=== PATIENT | female | born 1965 | race African-American/Black ===

== ENCOUNTER 2018-04-18 21:30 | Emergency (ER) | payer OTHER ==
[~2018-04-18] VITALS: Ht 170.2 cm; Wt 45.0 kg
[~2018-04-18 21:30] MED LIST: AMLO-511 PO; LORA10TA7 PO; METF-445 PO; OMEP20TA2 PO; PRAV20TA4 PO
[2018-04-18 21:49] LABS: GLUCOSE,POINT OF CARE 148 MG/DL (70-110)
[2018-04-18] MEDS ORDERED: MethylPREDNISolone SOD SUCC 125 MG/2 ML VIAL IM ONE (23:45)
[2018-04-18] MEDS ORDERED: KETOROLAC TROMETHAMINE 30 MG/ML VIAL IM ONE (23:45)
[2018-04-19] MEDS ORDERED: CARISOPRODOL 350 MG TABLET PO ONE (02:45)
[2018-04-19] MEDS ORDERED: HYDROCODONE/ACETAMINOPHEN 5-325 MG TABLET PO ONE (02:45)
[2018-04-19 04:25] LABS: APPEARANCE,URINE CLEAR (CLEAR); BILIRUBIN,URINE NEGATIVE (NEGATIVE); GLUCOSE, URINE (UA) >=1000 mg/dL (NEGATIVE); KETONES,URINE 15 mg/dL (NEGATIVE); LEUKOCYTE ESTERASE ,URINE NEGATIVE (NEGATIVE); NITRATE,URINE NEGATIVE (NEGATIVE); OCCULT BLOOD,URINE NEGATIVE (NEGATIVE); PH,URINE 6.5 (5.0-8.0); PROTEIN,URINE NEGATIVE (NEGATIVE)
[2018-04-19 04:29] LABS: AMPHET/METH SCREEN,URINE POSITIVE (NEGATIVE); BARBITURATE SCREEN, URINE NEGATIVE (NEGATIVE); BENZODIAZEPINES SCREEN,URINE NEGATIVE (NEGATIVE); CANNABINOID SCREEN,URINE POSITIVE (NEGATIVE); COCAINE SCREEN,URINE NEGATIVE (NEGATIVE); METHADONE SCREEN, URINE NEGATIVE (NEGATIVE); OPIATE SCREEN,URINE NEGATIVE (NEGATIVE); PHENCYCLIDINE SCREEN,URINE NEGATIVE (NEGATIVE)
[2018-04-19 04:32] LABS: BACTERIA,URINE None Seen /HPF (None Seen); SQUAMOUS EPITHELIAL CELL,UR Rare /LPF (None Seen); WBC,URINE 0-2 /HPF (0-5)
[2018-04-19 05:00] VITALS: BP 141/89
== END 2018-04-19 06:12 | disposition home or self-care (01) ==
LOC: EMS 21:31
DX: M54.42 Lumbago with sciatica, left side (principal); I10 Essential (primary) hypertension; E78.00 Pure hypercholesterolemia, unspecified; E11.9 Type 2 diabetes mellitus without complications; F17.210 Nicotine dependence, cigarettes, uncomplicated; F12.90 Cannabis use, unspecified, uncomplicated; Z79.4 Long term (current) use of insulin
CPT/HCPCS: 80307; 81001; 82962; 96372; 99283; J1885; J2930

== ENCOUNTER 2018-05-19 16:05 | Emergency (ER) | payer OTHER ==
[~2018-05-19] VITALS: Ht 170.2 cm; Wt 46.4 kg
[2018-05-19 16:30] LABS: GLUCOSE,POINT OF CARE 104 MG/DL (70-110)
[2018-05-19] MEDS ORDERED: ONDANSETRON HCL 4 MG/2 ML VIAL IVP ONE (19:30)
[2018-05-19] MEDS ORDERED: MORPHINE SULFATE 4 MG/ML SYRINGE IVP ONE (19:30)
[2018-05-19 19:35] LABS: EOSINOPHILS % (AUTO) 2.5 % (1.0-6.0); HEMATOCRIT 44.3 % (36-46); HEMOGLOBIN 15.6 g/dL (12.0-16.0); LYMPHOCYTES # (AUTO) 1.7 K/uL (1.0-4.8); LYMPHOCYTES % (AUTO) 28.4 % (22.0-44.0); MEAN CORPUSCULAR HEMOGLOBIN 32.9 pg (26.0-34.0); MEAN CORPUSCULAR HGB CONC 35.2 G/dL (31.0-37.0); MEAN CORPUSCULAR VOLUME 93 fL (80-100); MONOCYTES # (AUTO) 0.6 K/uL (0.1-1.0); MONOCYTES % (AUTO) 10.2 % (2.0-9.0); NEUTROPHILS # (AUTO) 3.5 K/uL (1.8-7.7); NEUTROPHILS % (AUTO) 56.9 % (40.0-70.0); PLATELET COUNT (AUTO) 323 K/uL (150-450); RED BLOOD CELL COUNT(AUTO) 4.75 MIL/uL (4.00-5.20); RED CELL DISTRIBUTION WIDTH 14.8 % (11.5-14.5)
[2018-05-19 19:44] LABS: ANION GAP 7 mmol/L (8-16); CALCIUM, TOTAL 9.5 mg/dL (8.8-10.5); CARBON DIOXIDE 31 mmol/L (22-29); CHLORIDE 100 mmol/L (98-107); CREATININE 0.74 mg/dL (0.60-1.30); GLOMERULAR FILTR. RATE CALC > 60 mL/min (>60); GLUCOSE,RANDOM 109 mg/dL (70-110); POTASSIUM 3.4 mmol/L (3.5-5.1); SODIUM SERUM 138 mmol/L (136-145); UREA NITROGEN, BLOOD 12 mg/dL (7-18)
[2018-05-19 19:49] LABS: ALANINE AMINOTRANSFERASE 22 U/L (12-78); ALBUMIN 3.7 g/dL (3.4-5.0); ALKALINE PHOSPHATASE 103 U/L (46-116); ASPARTATE AMINOTRANSFERASE 21 U/L (15-37); BILIRUBIN,TOTAL 0.3 mg/dL (0.1-1.0); LIPASE 65 U/L (73-393); TOTAL PROTEIN, SERUM 7.4 g/dL (6.4-8.2)
[2018-05-19 20:18] LABS: APPEARANCE,URINE CLEAR (CLEAR); GLUCOSE, URINE (UA) >=1000 mg/dL (NEGATIVE); KETONES,URINE TRACE mg/dL (NEGATIVE); LEUKOCYTE ESTERASE ,URINE NEGATIVE (NEGATIVE); NITRATE,URINE NEGATIVE (NEGATIVE); OCCULT BLOOD,URINE NEGATIVE (NEGATIVE); PROTEIN,URINE NEGATIVE (NEGATIVE)
[2018-05-19 20:19] LABS: BILIRUBIN,URINE PRELIM. POSITIVE (NEGATIVE)
[2018-05-19 20:30] LABS: BACTERIA,URINE Rare /HPF (None Seen); RBC,URINE 0-2 /HPF (0-2); SQUAMOUS EPITHELIAL CELL,UR Many /LPF (None Seen); WBC,URINE 0-2 /HPF (0-5)
[2018-05-19] MEDS ORDERED: SODIUM CHLORIDE 0.9% 100 ML ONE (20:39)
[2018-05-19] MEDS ORDERED: IOVERSOL 320 MG/ML 100 ML VIAL ONE (20:39)
[2018-05-19 22:37] VITALS: BP 120/74
== END 2018-05-19 23:13 | disposition home or self-care (01) ==
LOC: EMS 16:07
DX: S32.2XXA Fracture of coccyx, initial encounter for closed fracture (principal); M54.16 Radiculopathy, lumbar region; R10.32 Left lower quadrant pain; M79.652 Pain in left thigh; E11.9 Type 2 diabetes mellitus without complications; I10 Essential (primary) hypertension; E78.00 Pure hypercholesterolemia, unspecified; M19.90 Unspecified osteoarthritis, unspecified site; F17.210 Nicotine dependence, cigarettes, uncomplicated; F12.90 Cannabis use, unspecified, uncomplicated; Z79.84 Long term (current) use of oral hypoglycemic drugs; W19.XXXA Unspecified fall, initial encounter; Y93.89 Activity, other specified; Y92.89 Other specified places as the place of occurrence of the external cause; Y99.8 Other external cause status
CPT/HCPCS: 36415; 72131; 72220; 74177; 80053; 81001; 82962; 83690; 85025; 96374; 96375; 99284; J2270; J2405; J7050; Q9967

== ENCOUNTER 2020-11-23 20:33 | Emergency (ER) | payer OTHER ==
[~2020-11-23] VITALS: Ht 165.1 cm; Wt 54.5 kg
[~2020-11-23 20:33] MED LIST changes: +AMLO-257 PO; -AMLO-511 PO; +insulin CAUDAL
[2020-11-23 21:47] VITALS: BP 147/105
[2020-11-23 21:58] LABS: GLUCOMETER DEV NAME(LOC) ERT.5; GLUCOSE,POINT OF CARE 224 MG/DL (70-110)
== END 2020-11-24 00:49 | disposition left against medical advice (07) ==
LOC: EMS 20:41
DX: M54.5 Low back pain (principal); Z53.21 Procedure and treatment not carried out due to patient leaving prior to being seen by health care provider
CPT/HCPCS: 82962

== ENCOUNTER 2023-07-30 14:10 | Inpatient (IN) | payer OTHER ==
[~2023-07-30] VITALS: Ht 162.6 cm; Wt 96.3 kg
[~2023-07-30 14:10] MED LIST changes: +INSLAN SQ; +METR500 PO; -insulin CAUDAL
[2023-07-30] MEDS: DEXTROSE 50%-WATER 25 GM/50 ML SYRINGE IVP ONE (14:42)
[2023-07-30 14:56] LABS: BASOPHILS % (AUTO) 0.9 % (0.0-2.0); EOSINOPHILS % (AUTO) 0.7 % (1.0-6.0); HEMATOCRIT 40.7 % (36-46); HEMOGLOBIN 13.9 g/dL (12.0-16.0); LYMPHOCYTES # (AUTO) 0.7 K/uL (1.0-4.8); LYMPHOCYTES % (AUTO) 7.8 % (22.0-44.0); MEAN CORPUSCULAR HEMOGLOBIN 33.6 pg (26.0-34.0); MEAN CORPUSCULAR HGB CONC 34.2 G/dL (31.0-37.0); MEAN CORPUSCULAR VOLUME 98 fL (80-100); MONOCYTES # (AUTO) 0.4 K/uL (0.1-1.0); MONOCYTES % (AUTO) 4.6 % (2.0-9.0); NEUTROPHILS # (AUTO) 7.8 K/uL (1.8-7.7); PLATELET COUNT (AUTO) 348 K/uL (150-450); RED BLOOD CELL COUNT(AUTO) 4.15 MIL/uL (4.00-5.20); WHITE BLOOD COUNT (AUTO) 9.1 K/uL (4.5-11.0)
[2023-07-30 15:09] LABS: COVID AG,FIA SOURCE NASAL SWAB
[2023-07-30 15:11] LABS: B-TYPE NATRIURETIC PEPTIDE 285 pg/mL (0-100)
[2023-07-30 15:26] LABS: TROPONIN I-HIGH SENSITIVITY 13 ng/L (<51)
[2023-07-30 15:35] LABS: SARS-COV2 (COVID) ANTIGEN,FIA Negative (Negative)
[2023-07-30 15:44] LABS: ALANINE AMINOTRANSFERASE 33 U/L (12-78); ALBUMIN 2.4 g/dL (3.4-5.0); ALKALINE PHOSPHATASE 147 U/L (46-116); ANION GAP 7 mmol/L (8-16); ASPARTATE AMINOTRANSFERASE 43 U/L (15-37); BILIRUBIN,TOTAL 0.2 mg/dL (0.1-1.0); CALCIUM, TOTAL 8.6 mg/dL (8.8-10.5); CARBON DIOXIDE 28 mmol/L (22-29); CHLORIDE 99 mmol/L (98-107); CREATINE KINASE, TOTAL ONLY 134 U/L (26-192); CREATININE 0.43 mg/dL (0.60-1.30); GLOMERULAR FILTR. RATE CALC > 60 mL/min (>60); GLUCOSE,RANDOM 383 mg/dL (70-110); PHOSPHORUS 4.8 mg/dL (2.5-4.9); SODIUM SERUM 134 mmol/L (136-145); TOTAL PROTEIN, SERUM 6.4 g/dL (6.4-8.2); UREA NITROGEN, BLOOD 16 mg/dL (7-18)
[2023-07-30] MEDS ORDERED: ONDANSETRON HCL 4 MG/2 ML VIAL IVP PRN (15:45)
[2023-07-30] MEDS ORDERED: MORPHINE SULFATE 2 MG/ML SYRINGE IVP PRN (15:45)
[2023-07-30] MEDS ORDERED: MAGNESIUM HYDROXIDE SUSPENSION 30 ML UDCUP PO PRN (15:45)
[2023-07-30] MEDS ORDERED: HYDROCODONE/ACETAMINOPHEN 5-325 MG TABLET PO PRN (15:45)
[2023-07-30] MEDS ORDERED: ACETAMINOPHEN 325 MG TABLET PO PRN (15:45)
[2023-07-30] MEDS ORDERED: BISACODYL 10 MG RECTAL RECTAL SUPPOSITORY PR PRN (15:45)
[2023-07-30] MEDS ORDERED: ZOLPIDEM TARTRATE 5 MG TABLET PO PRN (15:45)
[2023-07-30 15:46] LABS: POTASSIUM 2.9 mmol/L (3.5-5.1)
[2023-07-30] MEDS: HEPARIN SODIUM,PORCINE 5,000 UNITS/ML VIAL SQ SCH (16:00)
[2023-07-30] MEDS: POTASSIUM CHLORIDE 20 MEQ ER TABLET PO ONE (16:21)
[2023-07-30] MEDS: MAGNESIUM SULFATE 2 GM, MVI, ADULT NO.1 WITH VIT K 10 ML, THIAMINE 100 MG, FOLIC ACID 1... IV ONE (16:21)
[2023-07-30] MEDS: POTASSIUM CHL 10 MEQ/WATER 50 ML IV ONE (16:21)
[2023-07-30 17:02] LABS: PH,URINE DRUG SCREEN 7.5 (5.0-8.0)
[2023-07-30 17:09] LABS: AMPHET/METH SCREEN,URINE POSITIVE (NEGATIVE); BARBITURATE SCREEN, URINE NEGATIVE (NEGATIVE); BENZODIAZEPINES SCREEN,URINE NEGATIVE (NEGATIVE); CANNABINOID SCREEN,URINE POSITIVE (NEGATIVE); COCAINE SCREEN,URINE NEGATIVE (NEGATIVE); METHADONE SCREEN, URINE NEGATIVE (NEGATIVE); OPIATE SCREEN,URINE NEGATIVE (NEGATIVE); PHENCYCLIDINE SCREEN,URINE NEGATIVE (NEGATIVE)
[2023-07-30 17:10] LABS: ALCOHOL, URINE DRUG SCREEN NEGATIVE (NEGATIVE)
[2023-07-30 17:38] LABS: APPEARANCE,URINE CLEAR (CLEAR); BILIRUBIN,URINE NEGATIVE (NEGATIVE); COLOR,URINE COLORLESS (YELLOW); GLUCOSE, URINE (UA) 150-200 mg/dL (NEGATIVE); KETONES,URINE NEGATIVE (NEGATIVE); LEUKOCYTE ESTERASE ,URINE NEGATIVE (NEGATIVE); NITRATE,URINE NEGATIVE (NEGATIVE); OCCULT BLOOD,URINE NEGATIVE (NEGATIVE); PROTEIN,URINE 30-70 mg/dL (NEGATIVE); SPECIFIC GRAVITIY, URINE 1.008 (1.003-1.030); UROBILINOGEN,URINE <=1.0 mg/dL (<=1.0)
[2023-07-30 17:48] LABS: BACTERIA,URINE None Seen /HPF (None Seen); RBC,URINE None Seen /HPF (0-2); WBC,URINE None Seen /HPF (0-5)
[2023-07-30 18:50] LABS: GLUCOMETER DEV NAME(LOC) ERT.5; GLUCOSE,POINT OF CARE 103 MG/DL (70-110)
[2023-07-30 19:00] VITALS: BP 158/111; PULSE 96; RESP 18; TEMP 96.8
[2023-07-30 19:55] VITALS: BP 144/97; PULSE 91; RESP 18; TEMP 97.9
[2023-07-30] MEDS: DEXTROSE 50%-WATER 25 GM/50 ML SYRINGE IVP PRN (21:06)
[2023-07-30 22:21] LABS: GLUCOMETER DEV NAME(LOC) 5N.2C; GLUCOSE,POINT OF CARE 40 MG/DL (70-110)
[2023-07-30] MEDS ORDERED: DEXTROSE 5%-0.9% SODIUM CHL 1,000 ML IV ONE (23:45)
[2023-07-31] MEDS: DEXTROSE 5%-0.9% SODIUM CHL 1,000 ML IV ONE (00:24)
[2023-07-31] MEDS ORDERED: POTASSIUM CHL 10 MEQ/WATER 50 ML IV PRN (00:30)
[2023-07-31 02:01] LABS: GLUCOMETER DEV NAME(LOC) 5S.1B; GLUCOSE,POINT OF CARE 61 MG/DL (70-110)
[2023-07-31 02:01] LABS: GLUCOMETER DEV NAME(LOC) 5S.1B; GLUCOSE,POINT OF CARE 172 MG/DL (70-110)
[2023-07-31] MEDS: PRAVASTATIN SODIUM 20 MG TABLET PO SCH (02:08)
[2023-07-31] MEDS: DOCUSATE SODIUM 100 MG CAPSULE PO SCH (02:09)
[2023-07-31] MEDS: POTASSIUM CHLORIDE 20 MEQ ER TABLET PO PRN (02:17)
[2023-07-31 03:34] VITALS: BP 129/79; PULSE 92; RESP 18; TEMP 98
[2023-07-31 05:51] LABS: GLUCOMETER DEV NAME(LOC) 5N.1D; GLUCOSE,POINT OF CARE 109 MG/DL (70-110)
[2023-07-31 05:51] LABS: GLUCOMETER DEV NAME(LOC) 5N.1D; GLUCOSE,POINT OF CARE 73 MG/DL (70-110)
[2023-07-31 06:32] LABS: BASOPHILS % (AUTO) 1.1 % (0.0-2.0); HEMATOCRIT 42.8 % (36-46); HEMOGLOBIN 14.3 g/dL (12.0-16.0); LYMPHOCYTES # (AUTO) 1.1 K/uL (1.0-4.8); LYMPHOCYTES % (AUTO) 15.5 % (22.0-44.0); MEAN CORPUSCULAR HGB CONC 33.4 G/dL (31.0-37.0); MEAN CORPUSCULAR VOLUME 99 fL (80-100); MONOCYTES # (AUTO) 0.5 K/uL (0.1-1.0); NEUTROPHILS # (AUTO) 5.4 K/uL (1.8-7.7); NEUTROPHILS % (AUTO) 75.4 % (40.0-70.0); PLATELET COUNT (AUTO) 329 K/uL (150-450); RED BLOOD CELL COUNT(AUTO) 4.33 MIL/uL (4.00-5.20); RED CELL DISTRIBUTION WIDTH 14.4 % (11.5-14.5); WHITE BLOOD COUNT (AUTO) 7.1 K/uL (4.5-11.0)
[2023-07-31 06:37] LABS: ANION GAP 7 mmol/L (8-16); CALCIUM, TOTAL 8.2 mg/dL (8.8-10.5); CARBON DIOXIDE 31 mmol/L (22-29); CHLORIDE 101 mmol/L (98-107); CREATININE 0.48 mg/dL (0.60-1.30); GLOMERULAR FILTR. RATE CALC > 60 mL/min (>60); GLUCOSE,RANDOM 65 mg/dL (70-110); POTASSIUM 3.7 mmol/L (3.5-5.1); SODIUM SERUM 139 mmol/L (136-145); UREA NITROGEN, BLOOD 10 mg/dL (7-18)
[2023-07-31 08:44] VITALS: BP 142/91; PULSE 98; RESP 14; TEMP 98.6
[2023-07-31] MEDS: PANTOPRAZOLE SODIUM 40 MG DR TABLET PO SCH (08:50)
[2023-07-31] MEDS: AmLODIPine BESYLATE 5 MG TABLET PO SCH (08:50)
[2023-07-31 11:43] VITALS: BP 131/86; PULSE 91; RESP 14; TEMP 98.2
[2023-07-31 11:56] LABS: GLUCOMETER DEV NAME(LOC) 5N.2C; GLUCOSE,POINT OF CARE 150 MG/DL (70-110)
[2023-07-31 13:48] LABS: THYROID STIMULATING HORMONE 2.46 uIU/mL (0.36-3.74)
[2023-07-31 13:49] LABS: HEMOGLOBIN A1C 12.7 % (3.8-5.6)
[2023-07-31 15:23] VITALS: BP 140/78; PULSE 89; RESP 16; TEMP 98
[2023-07-31] MEDS ORDERED: DEXTROSE 50%-WATER 25 GM/50 ML SYRINGE IVP PRN (17:00)
[2023-07-31 17:05] LABS: GLUCOMETER DEV NAME(LOC) 5N.2C; GLUCOSE,POINT OF CARE 377 MG/DL (70-110)
[2023-07-31] MEDS: INSULIN LISPRO 100 UNITS/ML SQ PRN (17:25)
[2023-07-31 17:40] LABS: GLUCOMETER DEV NAME(LOC) 5N.1D; GLUCOSE,POINT OF CARE 89 MG/DL (70-110)
[2023-07-31 20:06] VITALS: BP 132/91; PULSE 102; RESP 18; TEMP 97.6
[2023-08-01 01:01] VITALS: BP 156/91; PULSE 98; RESP 19; TEMP 97.7
[2023-08-01 04:31] LABS: GLUCOMETER DEV NAME(LOC) 5S.1B; GLUCOSE,POINT OF CARE 154 MG/DL (70-110)
[2023-08-01 04:31] LABS: GLUCOMETER DEV NAME(LOC) 5S.1B; GLUCOSE,POINT OF CARE 67 MG/DL (70-110)
[2023-08-01 05:19] VITALS: BP 128/91; PULSE 82; RESP 18; TEMP 97.6
[2023-08-01 06:56] LABS: GLUCOMETER DEV NAME(LOC) 5N.1D; GLUCOSE,POINT OF CARE 124 MG/DL (70-110)
[2023-08-01 06:58] LABS: ANION GAP 6 mmol/L (8-16); CALCIUM, TOTAL 9.1 mg/dL (8.8-10.5); CARBON DIOXIDE 28 mmol/L (22-29); CHLORIDE 99 mmol/L (98-107); CREATININE 0.46 mg/dL (0.60-1.30); GLOMERULAR FILTR. RATE CALC > 60 mL/min (>60); GLUCOSE,RANDOM 142 mg/dL (70-110); POTASSIUM 4.2 mmol/L (3.5-5.1); SODIUM SERUM 133 mmol/L (136-145); UREA NITROGEN, BLOOD 8 mg/dL (7-18)
[2023-08-01 06:59] LABS: BASOPHILS % (AUTO) 0.5 % (0.0-2.0); EOSINOPHILS % (AUTO) 1.2 % (1.0-6.0); HEMATOCRIT 45.3 % (36-46); HEMOGLOBIN 15.3 g/dL (12.0-16.0); LYMPHOCYTES # (AUTO) 1.6 K/uL (1.0-4.8); MEAN CORPUSCULAR HEMOGLOBIN 33.1 pg (26.0-34.0); MEAN CORPUSCULAR HGB CONC 33.8 G/dL (31.0-37.0); MEAN CORPUSCULAR VOLUME 98 fL (80-100); MONOCYTES # (AUTO) 0.5 K/uL (0.1-1.0); MONOCYTES % (AUTO) 7.2 % (2.0-9.0); NEUTROPHILS % (AUTO) 69.1 % (40.0-70.0); PLATELET COUNT (AUTO) 384 K/uL (150-450); RED BLOOD CELL COUNT(AUTO) 4.62 MIL/uL (4.00-5.20); RED CELL DISTRIBUTION WIDTH 14.2 % (11.5-14.5); WHITE BLOOD COUNT (AUTO) 7.3 K/uL (4.5-11.0)
[2023-08-01 07:28] VITALS: BP 130/89; PULSE 88; RESP 16; TEMP 97.8
[2023-08-01 11:27] VITALS: BP 126/88; PULSE 93; RESP 16; TEMP 97.8
[2023-08-01 14:21] LABS: GLUCOMETER DEV NAME(LOC) 5N.2C; GLUCOSE,POINT OF CARE 450 MG/DL (70-110)
[2023-08-01 14:21] LABS: GLUCOMETER DEV NAME(LOC) 5N.2C; GLUCOSE,POINT OF CARE 156 MG/DL (70-110)
[2023-08-01 15:50] VITALS: BP 131/77; PULSE 86; RESP 17; TEMP 97.6
[2023-08-01 20:28] VITALS: BP 134/90; PULSE 104; RESP 18; TEMP 98.4
[2023-08-01 21:20] LABS: GLUCOMETER DEV NAME(LOC) 5N.1D; GLUCOSE,POINT OF CARE 291 MG/DL (70-110)
[2023-08-02 00:28] VITALS: BP 150/85; PULSE 101; RESP 18; TEMP 98.2
[2023-08-02 00:45] LABS: GLUCOMETER DEV NAME(LOC) 5N.2C; GLUCOSE,POINT OF CARE 439 MG/DL (70-110)
[2023-08-02] MEDS: INSULIN LISPRO 100 UNITS/ML SQ ONE (01:08)
[2023-08-02 02:16] LABS: GLUCOMETER DEV NAME(LOC) 5S.1B; GLUCOSE,POINT OF CARE 346 MG/DL (70-110)
[2023-08-02 02:16] LABS: GLUCOMETER DEV NAME(LOC) 5S.1B; GLUCOSE,POINT OF CARE 436 MG/DL (70-110)
[2023-08-02 05:55] VITALS: BP 156/96; PULSE 94; RESP 18; TEMP 98.2
[2023-08-02 08:09] LABS: ANION GAP 5 mmol/L (8-16); CALCIUM, TOTAL 8.4 mg/dL (8.8-10.5); CARBON DIOXIDE 28 mmol/L (22-29); CHLORIDE 100 mmol/L (98-107); GLOMERULAR FILTR. RATE CALC > 60 mL/min (>60); GLUCOSE,RANDOM 254 mg/dL (70-110); POTASSIUM 4.3 mmol/L (3.5-5.1); SODIUM SERUM 133 mmol/L (136-145); UREA NITROGEN, BLOOD 12 mg/dL (7-18)
[2023-08-02 08:24] LABS: BASOPHILS % (AUTO) 1.5 % (0.0-2.0); EOSINOPHILS % (AUTO) 1.2 % (1.0-6.0); HEMATOCRIT 40.3 % (36-46); HEMOGLOBIN 13.6 g/dL (12.0-16.0); LYMPHOCYTES # (AUTO) 1.4 K/uL (1.0-4.8); LYMPHOCYTES % (AUTO) 22.2 % (22.0-44.0); MEAN CORPUSCULAR HGB CONC 33.8 G/dL (31.0-37.0); MEAN CORPUSCULAR VOLUME 98 fL (80-100); MONOCYTES # (AUTO) 0.6 K/uL (0.1-1.0); MONOCYTES % (AUTO) 9.3 % (2.0-9.0); NEUTROPHILS # (AUTO) 4.3 K/uL (1.8-7.7); NEUTROPHILS % (AUTO) 65.8 % (40.0-70.0); PLATELET COUNT (AUTO) 345 K/uL (150-450); RED BLOOD CELL COUNT(AUTO) 4.12 MIL/uL (4.00-5.20); RED CELL DISTRIBUTION WIDTH 14.1 % (11.5-14.5); WHITE BLOOD COUNT (AUTO) 6.5 K/uL (4.5-11.0)
[2023-08-02 08:33] VITALS: BP 138/80; PULSE 99; RESP 18; TEMP 98
[2023-08-02 11:25] LABS: GLUCOMETER DEV NAME(LOC) 5S.1B; GLUCOSE,POINT OF CARE 236 MG/DL (70-110)
[2023-08-02 11:26] VITALS: BP 149/89; PULSE 96; RESP 18; TEMP 98.6
[2023-08-02 12:15] LABS: GLUCOMETER DEV NAME(LOC) 5S.1B; GLUCOSE,POINT OF CARE 359 MG/DL (70-110)
[2023-08-02] MEDS ORDERED: INSULIN LISPRO 100 UNITS/ML SQ PRN (15:30)
[2023-08-02] MEDS ORDERED: DEXTROSE 50%-WATER 25 GM/50 ML SYRINGE IVP PRN (15:30)
[2023-08-02 20:31] LABS: GLUCOMETER DEV NAME(LOC) 5N.1D; GLUCOSE,POINT OF CARE 220 MG/DL (70-110)
[2023-08-02 20:41] LABS: GLUCOMETER DEV NAME(LOC) 5N.2C; GLUCOSE,POINT OF CARE 409 MG/DL (70-110)
== END 2023-08-02 18:30 | disposition home or self-care (01) | DRG 420 ==
LOC: EMS 14:13 → 5S 16:02
PROVIDERS: ADMIT Internal Medicine; ATTEND Internal Medicine
DX: E11.649 Type 2 diabetes mellitus with hypoglycemia without coma (principal); G92.8 Other toxic encephalopathy; I10 Essential (primary) hypertension; K86.1 Other chronic pancreatitis; Z20.822 Contact with and (suspected) exposure to COVID-19; J98.11 Atelectasis; E78.5 Hyperlipidemia, unspecified; F15.90 Other stimulant use, unspecified, uncomplicated; F12.90 Cannabis use, unspecified, uncomplicated; Z87.891 Personal history of nicotine dependence; Z79.899 Other long term (current) drug therapy
CPT/HCPCS: 70450; 71045; 80048; 80053; 80307; 81001; 81003; 82550; 82962; 83036; 83735; 83880; 84100; 84132; 84443; 84484; 85025; 93005; 97161; 99291; G0378; J1644; J1815; J3411; J3475; J3480; J3490; J7030; J7042; 36415-L1; 36415-TC

== ENCOUNTER 2023-08-26 12:02 | Emergency (ER) | payer OTHER ==
[~2023-08-26] VITALS: Ht 160 cm; Wt 43.6 kg
[~2023-08-26 12:02] MED LIST changes: -INSLAN SQ; -LORA10TA7 PO; -METR500 PO; -OMEP20TA2 PO; -PRAV20TA4 PO
[2023-08-26 12:22] VITALS: TEMP 97.9
[2023-08-26 12:36] LABS: GLUCOMETER DEV NAME(LOC) ER.7; GLUCOSE,POINT OF CARE 463 MG/DL (70-110)
[2023-08-26] MEDS ORDERED: ALBU18HF12 IH (12:37)
[2023-08-26] MEDS ORDERED: ASPI81TA87 PO (12:37)
[2023-08-26] MEDS ORDERED: LISI5TAB21 PO (12:37)
[2023-08-26] MEDS ORDERED: DOCU-119 PO (12:37)
[2023-08-26] MEDS ORDERED: PRAV20TA4 PO (12:37)
[2023-08-26] MEDS ORDERED: [UNRECOGNIZED DRUG - CODE] PO (12:37)
[2023-08-26] MEDS ORDERED: GABA-1181 PO (12:37)
[2023-08-26] MEDS ORDERED: METF-1211 PO (12:37)
[2023-08-26] MEDS ORDERED: CHOL10002 PO (12:37)
[2023-08-26] MEDS ORDERED: FAMO10TA39 PO (12:37)
[2023-08-26] MEDS ORDERED: OMEP20 PO (12:37)
[2023-08-26] MEDS ORDERED: THIA100T80 PO (12:38)
[2023-08-26] MEDS: SODIUM CHLORIDE 0.9% 1,000 ML IV ONE (14:50)
[2023-08-26 14:51] LABS: BASOPHILS % (AUTO) 1.2 % (0.0-2.0); EOSINOPHILS % (AUTO) 0.7 % (1.0-6.0); HEMATOCRIT 41.1 % (36-46); HEMOGLOBIN 14.2 g/dL (12.0-16.0); LYMPHOCYTES % (AUTO) 13.4 % (22.0-44.0); MEAN CORPUSCULAR HEMOGLOBIN 33.2 pg (26.0-34.0); MEAN CORPUSCULAR HGB CONC 34.5 G/dL (31.0-37.0); MEAN CORPUSCULAR VOLUME 96 fL (80-100); MONOCYTES # (AUTO) 0.4 K/uL (0.1-1.0); MONOCYTES % (AUTO) 5.8 % (2.0-9.0); NEUTROPHILS # (AUTO) 5.7 K/uL (1.8-7.7); NEUTROPHILS % (AUTO) 78.9 % (40.0-70.0); PLATELET COUNT (AUTO) 286 K/uL (150-450); RED BLOOD CELL COUNT(AUTO) 4.28 MIL/uL (4.00-5.20); WHITE BLOOD COUNT (AUTO) 7.2 K/uL (4.5-11.0)
[2023-08-26 15:06] LABS: ALANINE AMINOTRANSFERASE 16 U/L (12-78); ALBUMIN 2.5 g/dL (3.4-5.0); ALKALINE PHOSPHATASE 139 U/L (46-116); ANION GAP 8 mmol/L (8-16); ASPARTATE AMINOTRANSFERASE 10 U/L (15-37); BILIRUBIN,TOTAL 0.4 mg/dL (0.1-1.0); CALCIUM, TOTAL 9.5 mg/dL (8.8-10.5); CARBON DIOXIDE 27 mmol/L (22-29); CHLORIDE 99 mmol/L (98-107); CREATININE 0.54 mg/dL (0.60-1.30); GLOMERULAR FILTR. RATE CALC > 60 mL/min (>60); LIPASE 34 U/L (16-77); POTASSIUM 3.8 mmol/L (3.5-5.1); SODIUM SERUM 134 mmol/L (136-145); TOTAL PROTEIN, SERUM 7.1 g/dL (6.4-8.2); UREA NITROGEN, BLOOD 11 mg/dL (7-18)
[2023-08-26 15:08] LABS: GLUCOSE,RANDOM 426 mg/dL (70-110); TROPONIN I-HIGH SENSITIVITY 20 ng/L (<51)
[2023-08-26 15:20] LABS: ACETONE,BLOOD NEGATIVE (NEGATIVE)
[2023-08-26 15:24] LABS: APPEARANCE,URINE CLEAR (CLEAR); BILIRUBIN,URINE NEGATIVE (NEGATIVE); COLOR,URINE LIGHT YELLOW (YELLOW); GLUCOSE, URINE (UA) >=1000 mg/dL (NEGATIVE); LEUKOCYTE ESTERASE ,URINE NEGATIVE (NEGATIVE); NITRATE,URINE NEGATIVE (NEGATIVE); OCCULT BLOOD,URINE NEGATIVE (NEGATIVE); PH,URINE 6.5 (5.0-8.0); PROTEIN,URINE 100-200,SEE CONFIRM mg/dL (NEGATIVE); SPECIFIC GRAVITIY, URINE 1.037 (1.003-1.030); UROBILINOGEN,URINE <=1.0 mg/dL (<=1.0)
[2023-08-26] MEDS: INSULIN REGULAR, HUMAN 100 UNITS/ML IVP ONE ×2 (15:33→19:20)
[2023-08-26 15:36] LABS: SULFOSALICYLIC ACID,URINE 1+ (Negative)
[2023-08-26 15:38] LABS: BACTERIA,URINE None Seen /HPF (None Seen); RBC,URINE None Seen /HPF (0-2); SQUAMOUS EPITHELIAL CELL,UR None Seen /LPF (None Seen); WBC,URINE None Seen /HPF (0-5)
[2023-08-26] MEDS ORDERED: METF-910 PO (19:14)
[2023-08-26 19:50] VITALS: BP 138/77; PULSE 84; RESP 18
[2023-08-26 22:21] LABS: GLUCOMETER DEV NAME(LOC) ER.7; GLUCOSE,POINT OF CARE 194 MG/DL (70-110)
== END 2023-08-26 20:37 | disposition home or self-care (01) ==
LOC: EMS 12:02
DX: E11.65 Type 2 diabetes mellitus with hyperglycemia (principal); E86.0 Dehydration; F12.90 Cannabis use, unspecified, uncomplicated; F17.210 Nicotine dependence, cigarettes, uncomplicated; Z79.899 Other long term (current) drug therapy
CPT/HCPCS: 99284; 96374; 96361; 80053; 81001; 82009; 82962; 83690; 84484; 85025; 36415; 93005; 96376; J1815; J7030; 81002

== ENCOUNTER 2024-05-21 11:15 | Inpatient (IN) | payer OTHER ==
[~2024-05-21] VITALS: Ht 152.4 cm; Wt 40.9 kg
[~2024-05-21 11:15] MED LIST changes: +ALBU18HF12 IH; +ASPI81TA87 PO; +CHOL10002 PO; +DOCU-119 PO; +FAMO10TA39 PO; +GABA-1181 PO; +LISI5TAB21 PO; +METF-1211 PO; -METF-445 PO; +METF-910 PO; +OMEP20 PO; +PRAV20TA4 PO; +THIA100T80 PO; +[UNRECOGNIZED DRUG - CODE] PO
[2024-05-21 11:42] LABS: BASOPHILS % (AUTO) 0.4 % (0.0-2.0); EOSINOPHILS % (AUTO) 0 % (1.0-6.0); HEMATOCRIT 53.4 % (36-46); HEMOGLOBIN 17.9 g/dL (12.0-16.0); LYMPHOCYTES # (AUTO) 0.4 K/uL (1.0-4.8); LYMPHOCYTES % (AUTO) 7.6 % (22.0-44.0); MEAN CORPUSCULAR HEMOGLOBIN 32.5 pg (26.0-34.0); MEAN CORPUSCULAR HGB CONC 33.6 G/dL (31.0-37.0); MEAN CORPUSCULAR VOLUME 97 fL (80-100); MONOCYTES # (AUTO) 0.2 K/uL (0.1-1.0); MONOCYTES % (AUTO) 4.1 % (2.0-9.0); NEUTROPHILS # (AUTO) 4.6 K/uL (1.8-7.7); PLATELET COUNT (AUTO) 296 K/uL (150-450); RED BLOOD CELL COUNT(AUTO) 5.52 MIL/uL (4.00-5.20); RED CELL DISTRIBUTION WIDTH 15.2 % (11.5-14.5); WHITE BLOOD COUNT (AUTO) 5.2 K/uL (4.5-11.0)
[2024-05-21] MEDS: DEXTROSE 50%-WATER 25 GM/50 ML SYRINGE IVP ONE (11:45)
[2024-05-21 11:46] LABS: NEUTROPHILS % (AUTO) 87.9 % (40.0-70.0)
[2024-05-21 11:49] LABS: ANION GAP 8 mmol/L (8-16); CALCIUM, TOTAL 9.1 mg/dL (8.8-10.5); CARBON DIOXIDE 32 mmol/L (22-29); CHLORIDE 100 mmol/L (98-107); CREATININE 0.69 mg/dL (0.60-1.30); GLOMERULAR FILTR. RATE CALC > 60 mL/min (>60); GLUCOSE,RANDOM 67 mg/dL (70-110); POTASSIUM 3.1 mmol/L (3.5-5.1); SODIUM SERUM 140 mmol/L (136-145); UREA NITROGEN, BLOOD 14 mg/dL (7-18)
[2024-05-21 11:55] LABS: ALANINE AMINOTRANSFERASE 33 U/L (12-78); ALKALINE PHOSPHATASE 155 U/L (46-116); ASPARTATE AMINOTRANSFERASE 34 U/L (15-37); BILIRUBIN,TOTAL 0.5 mg/dL (0.1-1.0); TOTAL PROTEIN, SERUM 8.1 g/dL (6.4-8.2)
[2024-05-21] MEDS: POTASSIUM CHLORIDE 20 MEQ ER TABLET PO ONE (12:31)
[2024-05-21] MEDS: POTASSIUM CHL 10 MEQ/WATER 50 ML IV SCH (12:31)
[2024-05-21] MEDS: RINGERS SOLUTION,LACTATED 1,000 ML IV ONE (12:32)
[2024-05-21] MEDS ORDERED: ONDANSETRON HCL 4 MG/2 ML VIAL IVP PRN (12:45)
[2024-05-21] MEDS ORDERED: ACETAMINOPHEN 325 MG TABLET PO PRN (12:45)
[2024-05-21 12:50] LABS: GLUCOMETER DEV NAME(LOC) ER.7; GLUCOSE,POINT OF CARE 238 MG/DL (70-110)
[2024-05-21] MEDS: MAGNESIUM SULFATE 1 GM in DEXTROSE 5%-WATER 50 ML IV ONE (13:30)
[2024-05-21] MEDS: POTASSIUM CHLORIDE IV ONE (13:31)
[2024-05-21] MEDS: POTASSIUM CHL IV ONE (13:31)
[2024-05-21] MEDS: D5 NS IV ONE (13:31)
[2024-05-21] MEDS ORDERED: METF-446 PO (14:31)
[2024-05-21] MEDS ORDERED: OMEP40CA21 PO (14:31)
[2024-05-21] MEDS ORDERED: GLIM2TAB35 PO (14:31)
[2024-05-21] MEDS ORDERED: INSU100I26 SQ (14:31)
[2024-05-21] MEDS: MAGNESIUM SULFATE 2 GM/WATER 50 ML IV ONE (14:46)
[2024-05-21] MEDS: HEPARIN SODIUM,PORCINE 5,000 UNITS/ML VIAL SQ SCH (15:36)
[2024-05-21] MEDS ORDERED: ALBUTEROL SULFATE HFA 90 MCG/PUFF 8 GM INHALER IH PRN (19:30)
[2024-05-21 20:10] VITALS: BP 152/89; PULSE 87; RESP 18; TEMP 98; O2SAT 99
[2024-05-21] MEDS: DOCUSATE SODIUM 100 MG CAPSULE PO SCH (20:53)
[2024-05-21] MEDS: AmLODIPine BESYLATE 5 MG TABLET PO SCH (20:54)
[2024-05-21] MEDS: OMEPRAZOLE 20 MG CAPSULE PO SCH (20:54)
[2024-05-21] MEDS: INSULIN LISPRO 100 UNITS/ML SQ PRN (20:55)
[2024-05-21] MEDS ORDERED: DOCUSATE SODIUM 100 MG CAPSULE PO SCH (21:00)
[2024-05-21 21:01] LABS: GLUCOMETER DEV NAME(LOC) 5S.2D; GLUCOSE,POINT OF CARE 186 MG/DL (70-110)
[2024-05-22 00:22] VITALS: BP 145/84; PULSE 97; RESP 18; TEMP 97.6; O2SAT 99
[2024-05-22] MEDS: DEXTROSE 50%-WATER 25 GM/50 ML SYRINGE IVP PRN (01:31)
[2024-05-22 01:46] LABS: GLUCOMETER DEV NAME(LOC) 5S.2D; GLUCOSE,POINT OF CARE 126 MG/DL (70-110)
[2024-05-22 02:16] LABS: GLUCOMETER DEV NAME(LOC) ER.7; GLUCOSE,POINT OF CARE 215 MG/DL (70-110)
[2024-05-22] MEDS: DEXTROSE 5%-0.9% SODIUM CHL 1,000 ML IV SCH (02:17)
[2024-05-22 03:41] LABS: GLUCOMETER DEV NAME(LOC) 5S.2D; GLUCOSE,POINT OF CARE 189 MG/DL (70-110)
[2024-05-22 04:29] VITALS: BP 132/84; PULSE 105; RESP 18; TEMP 97.7; O2SAT 100
[2024-05-22 05:30] LABS: GLUCOMETER DEV NAME(LOC) 5S.2D; GLUCOSE,POINT OF CARE 175 MG/DL (70-110)
[2024-05-22] MEDS ORDERED: [UNRECOGNIZED DRUG - OTHER] PO SCH (06:30)
[2024-05-22 08:00] VITALS: BP 151/87; PULSE 101; RESP 18; TEMP 98; O2SAT 99
[2024-05-22 08:00] LABS: ANION GAP 11 mmol/L (8-16); CALCIUM, TOTAL 8.5 mg/dL (8.8-10.5); CARBON DIOXIDE 26 mmol/L (22-29); CHLORIDE 101 mmol/L (98-107); CREATININE 0.58 mg/dL (0.60-1.30); GLOMERULAR FILTR. RATE CALC > 60 mL/min (>60); GLUCOSE,RANDOM 152 mg/dL (70-110); POTASSIUM 4.1 mmol/L (3.5-5.1); SODIUM SERUM 138 mmol/L (136-145); UREA NITROGEN, BLOOD 9 mg/dL (7-18)
[2024-05-22 08:11] LABS: BASOPHILS % (AUTO) 0.4 % (0.0-2.0); EOSINOPHILS % (AUTO) 0.1 % (1.0-6.0); HEMATOCRIT 51.4 % (36-46); HEMOGLOBIN 17.1 g/dL (12.0-16.0); LYMPHOCYTES # (AUTO) 0.8 K/uL (1.0-4.8); MEAN CORPUSCULAR HEMOGLOBIN 32.5 pg (26.0-34.0); MEAN CORPUSCULAR HGB CONC 33.4 G/dL (31.0-37.0); MEAN CORPUSCULAR VOLUME 98 fL (80-100); MONOCYTES # (AUTO) 0.4 K/uL (0.1-1.0); MONOCYTES % (AUTO) 6.8 % (2.0-9.0); NEUTROPHILS # (AUTO) 5.3 K/uL (1.8-7.7); NEUTROPHILS % (AUTO) 80.7 % (40.0-70.0); PLATELET COUNT (AUTO) 242 K/uL (150-450); RED BLOOD CELL COUNT(AUTO) 5.27 MIL/uL (4.00-5.20); RED CELL DISTRIBUTION WIDTH 15.7 % (11.5-14.5); WHITE BLOOD COUNT (AUTO) 6.6 K/uL (4.5-11.0)
[2024-05-22] MEDS: VITAMIN B COMPLEX/FOLIC ACID 1 TABLET PO SCH (08:14)
[2024-05-22] MEDS: GABAPENTIN 300 MG CAPSULE PO SCH (08:14)
[2024-05-22] MEDS: LISINOPRIL 5 MG TABLET PO SCH (08:14)
[2024-05-22] MEDS: ASPIRIN 81 MG DR TABLET PO SCH (08:14)
[2024-05-22] MEDS: CHOLECALCIFEROL (VIT D3) 1,000 UNITS [25 MCG] TABLET PO SCH (08:15)
[2024-05-22] MEDS: THIAMINE 100 MG TABLET PO SCH (08:15)
[2024-05-22] MEDS: PRAVASTATIN SODIUM 20 MG TABLET PO SCH (08:15)
[2024-05-22] MEDS ORDERED: SODIUM CHLORIDE 0.9% 1,000 ML ONE (10:50)
[2024-05-22] MEDS ORDERED: SODIUM CHLORIDE 0.9% 250 ML IV ONE (10:51)
[2024-05-22 12:00] VITALS: BP 99/62; PULSE 99; RESP 20; TEMP 97.9; O2SAT 100
[2024-05-22] MEDS: SODIUM CHLORIDE 0.9% 500 ML IV ONE (12:36)
[2024-05-22 12:41] LABS: GLUCOMETER DEV NAME(LOC) 5N.1D; GLUCOSE,POINT OF CARE 338 MG/DL (70-110)
[2024-05-22 16:00] VITALS: BP 103/63; PULSE 98; RESP 18; TEMP 98; O2SAT 99
[2024-05-22] MEDS: GuaiFENesin/D-METHORPHAN/PHENYLEPH 5 ML LIQUID ORAL.SYG PO SCH (16:32)
[2024-05-22 20:00] VITALS: BP 111/65; PULSE 79; RESP 18; TEMP 97.8; O2SAT 100
[2024-05-22 20:55] LABS: GLUCOMETER DEV NAME(LOC) 5N.1D; GLUCOSE,POINT OF CARE 223 MG/DL (70-110)
[2024-05-23] VITALS: BP 103/59; PULSE 99; RESP 18; TEMP 98; O2SAT 100
[2024-05-23 01:21] LABS: GLUCOMETER DEV NAME(LOC) 5N.1D; GLUCOSE,POINT OF CARE 241 MG/DL (70-110)
[2024-05-23 01:21] LABS: GLUCOMETER DEV NAME(LOC) 5N.2C; GLUCOSE,POINT OF CARE 142 MG/DL (70-110)
[2024-05-23 04:31] VITALS: BP 123/70; PULSE 93; RESP 17; TEMP 97.6; O2SAT 98
[2024-05-23 05:56] LABS: GLUCOMETER DEV NAME(LOC) 5N.1D; GLUCOSE,POINT OF CARE 260 MG/DL (70-110)
[2024-05-23 07:58] VITALS: BP 117/74; PULSE 101; RESP 17; TEMP 97.9; O2SAT 98
[2024-05-23 11:53] VITALS: BP 132/79; PULSE 92; RESP 17; TEMP 98; O2SAT 98
[2024-05-23 16:07] VITALS: BP 128/75; PULSE 93; RESP 18; TEMP 98.1; O2SAT 99
[2024-05-23 18:06] LABS: GLUCOMETER DEV NAME(LOC) 5N.2C; GLUCOSE,POINT OF CARE 221 MG/DL (70-110)
[2024-05-23 18:06] LABS: GLUCOMETER DEV NAME(LOC) 5N.2C; GLUCOSE,POINT OF CARE 256 MG/DL (70-110)
[2024-05-23 20:21] VITALS: BP 123/75; PULSE 93; RESP 18; TEMP 97.6; O2SAT 98
[2024-05-23 20:40] LABS: GLUCOMETER DEV NAME(LOC) 5N.2C; GLUCOSE,POINT OF CARE 204 MG/DL (70-110)
[2024-05-24 00:14] VITALS: BP 127/78; PULSE 88; RESP 16; TEMP 98.1; O2SAT 100
[2024-05-24 05:33] VITALS: BP 151/84; PULSE 82; RESP 16; TEMP 98.3; O2SAT 98
[2024-05-24 05:46] LABS: GLUCOMETER DEV NAME(LOC) 5N.1D; GLUCOSE,POINT OF CARE 146 MG/DL (70-110)
[2024-05-24 07:00] LABS: ANION GAP 4 mmol/L (8-16); CALCIUM, TOTAL 8.6 mg/dL (8.8-10.5); CARBON DIOXIDE 30 mmol/L (22-29); CHLORIDE 101 mmol/L (98-107); CREATININE 0.52 mg/dL (0.60-1.30); GLOMERULAR FILTR. RATE CALC > 60 mL/min (>60); GLUCOSE,RANDOM 126 mg/dL (70-110); POTASSIUM 4.1 mmol/L (3.5-5.1); SODIUM SERUM 135 mmol/L (136-145); UREA NITROGEN, BLOOD 12 mg/dL (7-18)
[2024-05-24 07:52] VITALS: BP 129/76; PULSE 93; RESP 16; TEMP 98.2; O2SAT 98
[2024-05-24] MEDS: MAGNESIUM OXIDE 400 MG TABLET PO ONE (09:12)
[2024-05-24 11:09] VITALS: BP 115/66; PULSE 98; RESP 18; TEMP 98.1; O2SAT 96
[2024-05-24 12:20] LABS: GLUCOMETER DEV NAME(LOC) 5N.1D; GLUCOSE,POINT OF CARE 178 MG/DL (70-110)
[2024-05-24] MEDS ORDERED: INSU100I26 SQ (12:51)
[2024-05-24] MEDS ORDERED: MAGN400T57 PO (12:56)
== END 2024-05-24 15:35 | disposition home or self-care (01) | DRG 420 ==
LOC: EMS 11:20 → EDH 12:41 → 5S 19:00
PROVIDERS: ADMIT Internal Medicine; ATTEND Internal Medicine
DX: E11.649 Type 2 diabetes mellitus with hypoglycemia without coma (principal); G93.41 Metabolic encephalopathy; E43 Unspecified severe protein-calorie malnutrition; E83.42 Hypomagnesemia; E87.6 Hypokalemia; I10 Essential (primary) hypertension; E78.00 Pure hypercholesterolemia, unspecified; J45.909 Unspecified asthma, uncomplicated; Z68.1 Body mass index [BMI] 19.9 or less, adult; Z79.899 Other long term (current) drug therapy
CPT/HCPCS: 71045; 80048; 80076; 82962; 83036; 83735; 85025; 93005; 99285; G0378; J1644; J3475; J3480; J7030; J7040; J7042; J7050; J7060; 36415-L1; 36415-TC